=== PATIENT | female | born 1985 | race Caucasian/White ===

== ENCOUNTER 2016-09-29 22:27 | Emergency (ER) | payer MEDICAID ==
[~2016-09-29] VITALS: Ht 162.6 cm; Wt 105.0 kg
[~2016-09-29 22:27] MED LIST: ACET325T33 PO; CALC-600 PO; CEPH-443 PO; HYDR-3498 PO; IBUP-1542 PO; MECL12.574 PO; ONDA4TAB14 PO; PREN1TAB17 PO; PREN1TAB49 PO
[2016-09-29 22:30] VITALS: Ht 162.6 cm; Wt 105.0 kg
--- NOTE | 2016-09-30 00:55 | ERD ---
ER Documentation Chief Complaint Date/Time DATE: 09/30/16 TIME: 00:51 Chief Complaint ANXIETY- SHAKING STOP TAKING ALPRAZOLAM FOR 4 DAYS, RUN OUT OF IT HPI This pleasant 30-year-old female presents to emergency department today for treatment of anxiety symptoms. pt takes alprazolam .05mg and propranolol, prescribed by PMD. Patient reports that she is out of her alprazolam 4 days feels she might be withdrawing, states that her symptoms are pruritics, and palpations and irritated. denies triggers . She currently is under the care of his physician and a psychologist Denies suicidal or homicidal ideation ROS All systems reviewed and are negative except as per history of present illness. Medications Home Meds Active Scripts Diazepam* (Valium*) 5 Mg Tablet, 5 MG PO Q8, #20 TAB Prov:ROBINLADONNA 09/30/16 Ondansetron (Ondansetron Odt) 4 Mg Tab.rapdis, 4 MG PO Q6H Y for NAUSEA AND/OR VOMITING, #10 TAB Prov:KEARA MOTLEY PA-C 12/03/15 Acetaminophen* (Tylenol*) 325 Mg Tablet, 2 TAB PO Q6 Y for PAIN AND OR ELEVATED TEMP, #20 TAB Prov:KEARA MOTLEY PA-C 12/03/15 Meclizine Hcl* (Antivert*) 12.5 Mg Tab, 12.5 MG PO Q6H Y for DIZZINESS, #20 TAB Prov:KEARA MOTLEY PA-C 12/03/15 Hydrocodone Bit-Acetaminophen* (Jerome*) 5-325 Mg Tab, 1 TAB PO Q6 Y for PAIN, # 14 TAB Do not operate heavy machinery or drive while taking this medication. Prov:BRANDY WILSON PA-C 09/11/15 Ibuprofen* (Motrin*) 600 Mg Tab, 600 MG PO Q8 for PAIN AND/OR INFLAMMATION, #30 TAB Prov:NEGRO MINOR MD 08/29/15 Cephalexin* (Keflex*) 500 Mg Capsule, 500 MG PO QID for 5 Days, CAP Prov:NEGRO MINOR MD 08/29/15 Reported Medications Vit-Iron Fumarate-FA ( Tablet) 1 Each Tablet, 1 EACH PO DAILY 09/02/12 Calcium (Calcium) 500 Mg Tablet, 500 MG PO DAILY 05/10/12 Vits W-Ca,Fe,Fa(<1MG) () 1 Tab Tablet, 1 TAB PO DAILY 05/10/12 Allergies Allergies: Coded Allergies: No Known Drug Allergy (Verified Allergy, Mild, 09/02/12) PMhx/Soc History of Surgery: No Anesthesia Reaction: No Hx Neurological Disorder: No Hx Respiratory Disorders: No Hx Cardiac Disorders: No Hx Psychiatric Problems: No Hx Miscellaneous Medical Probl: Yes (TREATED FOR UTI 08/29/15) Hx Alcohol Use: No Hx Substance Use: No Hx Tobacco Use: No Physical Exam Vitals Vital Signs Date Time Temp Pulse Resp B/P Pulse Ox O2 Delivery O2 Flow Rate FiO2 09/30/16 03:45 77 20 128/80 99 09/29/16 22:30 97.8 87 20 130/80 99 Vitals stable, triage notes reviewed Physical Exam Const: Well-nourished well-appearing well-hydrated no acute distress Head: Atraumatic Eyes: Normal Conjunctiva ENT: Normal External Ears, Nose and Mouth. Neck: Full range of motion..~ No meningismus. Resp: Clear to auscultation bilaterally Cardio: Regular rate and rhythm, no murmurs Abd: Soft, non tender, non distended. Normal bowel sounds Skin: No petechiae or rashes Back: No midline or flank tenderness Ext: No cyanosis, or edema Neur: Awake and alert Psych: Normal Mood and Affect Results 24 hrs Current Medications Medications (Trade) Dose Ordered Sig/Arcelia Route PRN Reason Start Time Stop Time Status Last Admin Dose Admin Diazepam (Valium) 5 mg ONCE ONCE PO 09/30/16 01:00 09/30/16 01:01 DC 09/30/16 01:18 Procedures/MDM This pleasant 30-year-old female presents to emergency department for refill of anxiety medication, patient reports that she is out of her alprazolam. Patient is unsure if she is withdrawing, she is in the care of his physician has not had alcohol exam in 4 days, she is also treated with propranolol patient also has counseling with a psychologist and is open to finding a long-term treatment such as an SSRI for anxiety symptoms, patient reports she feels anxious, irritated, and that her skin is itchy. I have low suspicion for drug-seeking behavior acute coronary syndrome denies suicidal or homicidal ideation patient treated with 5 mg of Valium with effective relief of symptoms was discharged home with 20 Valium instructed to follow-up with primary care physician for further treatment of anxiety disorder. Return to emergency department for any symptoms of increased anxiety, any suicidal or homicidal ideations. Patient is stable with no new complaints during ER course, clinically there is no current evidence to suggest meningitis, sepsis, acute abdomen, acute coronary syndromes , pulmonary embolism or any other emergent condition appearing to require further evaluation or hospitalization. I feel the patient is stable for discharge at this time. I have discussed results, examination findings, the treatment plan with the patient and family present prior to discharge. Indications for emergent reevaluation, side effects of medication were also discussed. All questions were answered. Patient verbalizes understanding and agrees with plan of care. Departure Patient Instructions: Treating Anxiety Disorders with Therapy Additional Instructions: Thank you for for coming to [facility] for your care today. Please ask your nurse or provider if you have questions about your care today and do not leave until all your questions have been answered. Please use any medications given as directed and follow-up with your doctor (or the doctor you were referred to) in the next 2-3 days. If you do not have a primary care doctor you may follow up at the [facility] - [place], [place] (listed below). You may also use motrin and tylenol as needed for fever and/or pain unless instructed otherwise by your provider or nurse. Indications for more urgent follow-up have been discussed, but you may return to the Emergency Department at ANY time for any worrisome or worsening symptoms. If you have abdominal pain, please know that no test or exam you received is perfect and you should follow up within 8 hours for continued pain. If you had any imaging studies today, such as an X-Ray or CT Scan, these studies will be reviewed later by a radiologist. You will be called if there are important findings that were not identified today, so make sure the contact information you provided at registration is correct. If you received any narcotic pain control medicine today, such as Vicodin, Morphine or Dilaudid, your coordination and judgment may be affected for a number of hours. Please do not drive or operate heavy machinery, and you may want someone to assist you at home. If you were given a prescription for narcotic medication, be aware that it is very addictive- use sparingly and only if necessary. LADONNA KELLY Sep 30, 2016 00:53
[2016-09-30] MEDS ORDERED: DIAZEPAM 5 MG TAB PO ONE (01:00)
[2016-09-30] MEDS ORDERED: DIAZ-90 PO (03:36)
[2016-09-30 03:45] VITALS: BP 128/80; PULSE 77; RESP 20
== END 2016-09-30 03:46 | disposition home or self-care (01) ==
LOC: FTE 22:27
DX: F41.9 Anxiety disorder, unspecified (principal)
CPT/HCPCS: Z7502; Z7610; 99283

== ENCOUNTER 2017-01-19 21:07 | Emergency (ER) | payer MEDICAID, OTHER ==
[~2017-01-19] VITALS: Ht 162.6 cm; Wt 110.1 kg
[~2017-01-19 21:07] MED LIST changes: +DIAZ-90 PO
[2017-01-19 21:28] VITALS: Ht 162.6 cm; Wt 110.1 kg
--- NOTE | 2017-01-20 01:27 | ERD ---
ER Documentation Chief Complaint Chief Complaint sp ground level fall, right ankle pain, medication refill- alprazolam HPI 31-year-old female who presents emergency department for right ankle pain. Stated that she had a mechanical fall or trip and fell couple of hours ago, rolled her right ankle. She was able to walk after the injury however she is having pain. Also asking for a refill of her Xanax for her anxiety. Denies headache, head injury, loss of consciousness, neck pain, neck stiffness, throat pain, difficulty swallowing, shoulder pain, chest pain, back pain, abdominal pain, nausea, vomiting, loss of bowel bladder control, constipation, diarrhea, urinary symptoms, or possibility of being , numbness or tingling sensation, recent long travel, recent antibiotic use in the last 3 months, fever, chills. ROS All systems reviewed and are negative except as per history of present illness. Medications Home Meds Active Scripts Alprazolam* (Xanax*) 0.5 Mg Tab, 0.5 MG PO Q8H Y for ANXIETY, #8 TAB Prov:KERRY WALSH 01/20/17 Ibuprofen* (Motrin*) 800 Mg Tab, 800 MG PO Q8 Y for PAIN AND OR ELEVATED TEMP, # 30 TAB Prov:BRETTKERRY THORNTON F 01/20/17 Diazepam* (Valium*) 5 Mg Tablet, 5 MG PO Q8, #20 TAB Prov:ROBINZINALADONNA 09/30/16 Ondansetron (Ondansetron Odt) 4 Mg Tab.rapdis, 4 MG PO Q6H Y for NAUSEA AND/OR VOMITING, #10 TAB Prov:KEARA MOTLEY PA-C 12/03/15 Acetaminophen* (Tylenol*) 325 Mg Tablet, 2 TAB PO Q6 Y for PAIN AND OR ELEVATED TEMP, #20 TAB Prov:KEARA MOTLEY PA-C 12/03/15 Meclizine Hcl* (Antivert*) 12.5 Mg Tab, 12.5 MG PO Q6H Y for DIZZINESS, #20 TAB Prov:KEARA MOTLEY PA-C 12/03/15 Hydrocodone Bit-Acetaminophen* (Malinta*) 5-325 Mg Tab, 1 TAB PO Q6 Y for PAIN, # 14 TAB Do not operate heavy machinery or drive while taking this medication. Prov:BRANDY WILSON PA-C 09/11/15 Ibuprofen* (Motrin*) 600 Mg Tab, 600 MG PO Q8 for PAIN AND/OR INFLAMMATION, #30 TAB Prov:NEGRO MINOR MD 08/29/15 Cephalexin* (Keflex*) 500 Mg Capsule, 500 MG PO QID for 5 Days, CAP Prov:ENGRO MINOR MD 08/29/15 Reported Medications Vit-Iron Fumarate-FA ( Tablet) 1 Each Tablet, 1 EACH PO DAILY 09/02/12 Calcium (Calcium) 500 Mg Tablet, 500 MG PO DAILY 05/10/12 Vits W-Ca,Fe,Fa(<1MG) () 1 Tab Tablet, 1 TAB PO DAILY 05/10/12 Allergies Allergies: Coded Allergies: No Known Drug Allergy (Verified Allergy, Mild, 09/02/12) PMhx/Soc Medical and Surgical Hx: pt denies Surgical Hx History of Surgery: No Anesthesia Reaction: No Hx Neurological Disorder: No Hx Respiratory Disorders: No Hx Cardiac Disorders: No Hx Psychiatric Problems: Yes (ANXIETY) Hx Miscellaneous Medical Probl: Yes (TREATED FOR UTI 08/29/15) Hx Alcohol Use: No Hx Substance Use: No Hx Tobacco Use: No Physical Exam Vitals Vital Signs Date Time Temp Pulse Resp B/P Pulse Ox O2 Delivery O2 Flow Rate FiO2 01/20/17 03:46 98.0 67 16 118/74 99 Room Air 01/19/17 21:28 98.1 92 20 139/81 98 Physical Exam Const: Well-appearing. Not in respiratory distress. Head: Atraumatic Eyes: Normal Conjunctiva ENT: Normal External Ears, Nose and Mouth. Neck: Full range of motion..~ No meningismus. Resp: Clear to auscultation bilaterally Cardio: Regular rate and rhythm, no murmurs Abd: Soft, non tender, non distended. Normal bowel sounds Skin: No petechiae or rashes Back: No midline or flank tenderness Ext: No cyanosis, or edema. Left lower extremities unremarkable. Right ankle has mild swelling with bruising and tenderness but has full range of motion. Right pedal pulse is within normal limits. Able to move her right toes. Right knee is unremarkable. Bilateral hips are stable and unremarkable. C-spine/T-spine/L-spine are in midline with good and full range of motion and is no deformity/bulging/discoloration/point of tenderness. No saddle anesthesia. Neur: Awake and alert appears anxious.. Psych: Normal Mood and Affect Results 24 hrs Current Medications Medications (Trade) Dose Ordered Sig/Arcelia Route PRN Reason Start Time Stop Time Status Last Admin Dose Admin Alprazolam (Xanax) 0.5 mg ONCE ONCE PO 01/20/17 01:30 01/20/17 01:31 DC 01/20/17 01:29 Acetaminophen/ Hydrocodone Bitart (Malinta (5/325)) 1 tab ONCE ONCE PO 01/20/17 03:30 01/20/17 03:31 DC 01/20/17 03:15 Procedures/MDM X-ray of the right ankle: Soft tissue swelling over the medial malleolus with no acute fracture. X-ray of the right tibia and fibula: Swelling. No acute osseous abnormality. Treatment: Xanax. Gael wrap. Reevaluation: Denies pain. No neurovascular deficits prior to and after the application of Gael wrap. Denies auditory and visual hallucinations/delusions. Not suicidal. Not homicidal. Has the capacity to decide for herself. Differential: I have low suspicion for fracture, displacement, dislocation due to x-ray and response to treatment. Final diagnosis: Ankle sprain. Prescription: Motrin. Xanax. Follow-up with PCP in the next 3-4 days. PCP to refer patient to orthopedic doctor in the next 3-4 days. Come back here in the emergency department for any new symptoms or any worsening of symptoms. All questions and concerns were answered. Patient verbalized understanding and agreed with the plan of care. Hemodynamically stable on discharge. Departure Diagnosis: Primary Impression: Ankle sprain Condition: Stable Additional Instructions: Follow-up with PCP in the next 3-4 days. PCP to refer patient to orthopedic doctor in the next 3-4 days. Come back here in the emergency department for any new symptoms or any worsening of symptoms. All questions and concerns were answered. Patient verbalized understanding and agreed with the plan of care. KERRY AWLSH Jan 20, 2017 01:27
[2017-01-20] MEDS ORDERED: ALPRAZOLAM 0.25 MG TAB PO ONE (01:30)
--- NOTE | 2017-01-20 02:13 | RADRPT ---
PROCEDURE: Right tibia and fibula x-ray CLINICAL INDICATION: Fall. pain/injury TECHNIQUE: AP, lateral views of the tibia and fibula were obtained. COMPARISON: None FINDINGS: There is normal mineralization. No acute fracture or dislocation is seen. There are no significant degenerative changes. There is mild soft tissue swelling. IMPRESSION: Swelling. No acute osseous abnormality. Physician Darryl Date Time Electronically viewed and signed by Physician Darryl on 01/20/2017 02:12 /
--- NOTE | 2017-01-20 02:16 | RADRPT ---
PROCEDURE: XR Ankle. CLINICAL INDICATION: Fall. pain/injury TECHNIQUE: AP, oblique and lateral views of the right ankle were performed. COMPARISON: None. FINDINGS: There is normal mineralization and alignment. No fracture or osseous lesion is identified. The joints are normal. There is soft tissue swelling over the medial malleolus. IMPRESSION: Soft tissue swelling over the medial malleolus with no acute fracture. Physician Darryl Date Time Electronically viewed and signed by Physician Darryl on 01/20/2017 02:16 /
[2017-01-20] MEDS ORDERED: HYDROCODONE/APAP (5/325) TAB PO ONE (03:30)
[2017-01-20] MEDS ORDERED: IBUP800T25 PO (03:37)
[2017-01-20] MEDS ORDERED: ALPR0.5T PO (03:37)
[2017-01-20 03:46] VITALS: BP 118/74; PULSE 67; RESP 16; TEMP 98
== END 2017-01-20 03:48 | disposition home or self-care (01) ==
LOC: FTE 21:07
DX: S93.401A Sprain of unspecified ligament of right ankle, initial encounter (principal); W01.0XXA Fall on same level from slipping, tripping and stumbling without subsequent striking against object, initial encounter; Y92.9 Unspecified place or not applicable
CPT/HCPCS: 73590; 73610; Z7502; Z7610

== ENCOUNTER 2017-03-18 14:10 | Emergency (ER) | END 2017-03-18 18:22 | disposition home or self-care (01) ==

== ENCOUNTER 2017-08-17 09:36 | Emergency (ER) | END 2017-08-17 14:41 | disposition home or self-care (01) ==

== ENCOUNTER 2017-10-28 16:53 | Emergency (ER) | END 2017-10-28 18:24 | disposition home or self-care (01) ==

== ENCOUNTER 2017-12-10 10:26 | Emergency (ER) | END 2017-12-10 13:14 | disposition home or self-care (01) ==

== ENCOUNTER 2018-01-01 10:50 | Emergency (ER) | END 2018-01-01 14:20 | disposition home or self-care (01) ==

== ENCOUNTER 2018-10-02 07:51 | Emergency (ER) | payer SELFPAY ==
[~2018-10-02] VITALS: Ht 160 cm; Wt 84.6 kg
[~2018-10-02 07:51] MED LIST changes: -ACET325T33 PO; +ALBU18HF INHALATION; +ALPR0.5T PO; +ALPR1TAB2 PO; +AZIT250T PO; +BENZ-6 PO; -CALC-600 PO; -CEPH-443 PO; +D-ME473S2 PO; -DIAZ-90 PO; +ERYT1OIN6 LEFT EYE; +GUAI120011 PO; -HYDR-3498 PO; +IBUP800T48 PO; -MECL12.574 PO; -ONDA4TAB14 PO; +PRED20TA PO; -PREN1TAB17 PO; -PREN1TAB49 PO
[2018-10-02 07:52] VITALS: BP 137/82; PULSE 86; RESP 20; Ht 160 cm; Wt 84.6 kg
[2018-10-02] MEDS ORDERED: KETOROLAC 30 MG INJ IM STA (08:13)
[2018-10-02] MEDS ORDERED: FLUORESCEIN STRIP LEFT EYE ONE (09:30)
== END 2018-10-02 10:00 | disposition home or self-care (01) ==
LOC: FTE 07:51
DX: H18.822 Corneal disorder due to contact lens, left eye (principal)
CPT/HCPCS: 76536; 81025; 96372; 99285; J1885